=== PATIENT | female | born 1970 | race Caucasian/White ===

== ENCOUNTER 2017-04-07 08:36 | Outpatient (CLI) | payer BC ==
[2017-04-07] MEDS ORDERED: Iopamidol 370 76% 100 ML VIAL ONE (09:00)
--- NOTE | 2017-04-07 11:07 | CT ---
CT ABDOMEN AND PELVIS WITH AND WITHOUT CONTRAST: Date: 04-07-17 Comparison: 08-23-09 History: Hematuria. Technique: Serial axial CT imaging obtained at 5 mm interval from lung bases through the pubic symphy sis with and without IV contrast using a CT urogram protocol. Coronal reformatted imaging of the urog raphic studies provided. FINDINGS: The imaged lung bases are grossly unremarkable. No free intraperitoneal air or fluid. There is a punctate nonobstructing stone in the midpole of the left kidney measuring 3 mm. No intrare nal stone is seen on the right. The liver, gallbladder, spleen, pancreas, adrenal glands, and kidneys are otherwise unremarkable on t he nephrographic phase and urographic phase imaging. The urographic phase imaging demonstrates no evidence for a filling defect within the intrarenal parveen ecting system or imaged portions of either ureter. Urinary bladder is not optimally evaluated on this exam. Full evaluation of the urinary bladder would require direct visualization via cystoscopy. Lack of oral contrast limits assessment of the bowel. No evidence for bowel inflammatory change or claritza wel wall obstruction. The vascular structures of the abdomen/pelvis appear patent. There is no lymphadenopathy noted in the abdomen or pelvis. Incidental note is made of trace free fluid in the pelvic cul-de-sac. Osseous structures demonstrate no acute findings. IMPRESSION: 1. Nonobstructing stone midpole left kidney. 2. No solid renal mass or evidence of obstructive uropathy. 3. Urinary bladder not optimally assessed on this exam. POS: [facility]
== END 2017-04-07 08:37 | disposition home or self-care (01) ==
LOC: SCSCT 08:36
PROVIDERS: ATTEND Urology
DX: R31.9 Hematuria, unspecified (principal)
CPT/HCPCS: 74178

== ENCOUNTER 2018-05-20 13:41 | Outpatient (CLI) | payer BC ==
--- NOTE | 2018-05-20 14:44 | RAD ---
Exam: 1 view abdomen History renal calculi. : None Correlation: Abdomen CT 04/07/2018 FINDINGS: Nonspecific bowel gas pattern. No evidence of pneumoperitoneum on this supine projection. Questionable 3 mm calculus projecting over the medial left renal silhouette. Correlate clinically. No evidence of calcifications in the pelvis No osseous abnormalities IMPRESSION: Possible 3 mm calculus projecting over the medial left renal silhouette.
== END 2018-05-20 13:42 | disposition home or self-care (01) ==
LOC: RAD 13:41
PROVIDERS: ATTEND Urology
DX: N20.0 Calculus of kidney (principal)
CPT/HCPCS: 74018

== ENCOUNTER 2022-11-23 13:27 | Outpatient (CLI) | payer BC ==
[2022-11-23 14:26] LABS: #Eosinphils 0.1 10x3/uL (0.0-0.5); #Monocytes 0.5 10x3/uL (0.0-1.1); #Neutrophils 3.4 10x3/uL (1.5-8.4); %Basophils 0.6 % (0.0-2.0); %Eosinophils 2.6 % (0.0-6.0); %Lymphocytes 24.2 % (18.0-47.0); %Monocytes 9.4 % (0.0-10.0); Hematocrit 39.2 % (34.9-44.5); Hemoglobin 13.2 g/dL (12.0-15.5); Mean Corpuscular HGB CONC 33.7 g/dL (32.0-36.0); Mean Corpuscular Hemoglobin 33.6 pg (27.0-33.0); Mean Corpuscular Volume 99.7 fl (81.6-98.3); Mean Platelet Volume 8.2 fl (7.4-10.4); Platelet Count 288 10x3/uL (150-450); RBC Distribution Width 11.9 % (11.5-14.5); Red Blood Cell (RBC) Count 3.93 10x6/uL (3.90-5.03); White Blood Cell (WBC) Count 5.3 10x3/uL (3.5-10.5)
[2022-11-23 14:49] LABS: Anion Gap 14 mmol/L (10-20); BUN (Urea Nitrogen) 11 mg/dL (9.8-20.1); Calc. Creatinine Clearance 0 mL/min (70-130); Calcium 10.2 mg/dL (7.8-10.44); Carbon Dioxide 24 mmol/L (22-29); Chloride 105 mmol/L (98-107); Estimated GFR 90; Glucose 88 mg/dL (70-105); Potassium 4.5 mmol/L (3.5-5.1); Sodium 138 mmol/L (136-145)
== END 2022-11-23 13:28 | disposition home or self-care (01) ==
LOC: LABBT 13:27
PROVIDERS: ATTEND Orthopaedic Surgery
DX: Z01.818 Encounter for other preprocedural examination (principal); S83.241A Other tear of medial meniscus, current injury, right knee, initial encounter
CPT/HCPCS: 80048; 85025; 93005; 93010

== ENCOUNTER 2022-11-25 12:09 | Day surgery (SDC) | payer BC ==
[2022-11-23 13:50] VITALS: BMI 27.4
[2022-11-25] MEDS ORDERED: Sodium Chloride 0.9% 0 ML ONE (12:55)
[2022-11-25] MEDS ORDERED: CEFAZOLIN 2 GM VIAL ONE ×2 (12:55→15:19)
[2022-11-25] MEDS ORDERED: Scopolamine 1.5 mg/72 hour Patch ONE (12:59)
[2022-11-25] MEDS ORDERED: Acetaminophen 500 MG TAB ONE (12:59)
[2022-11-25] MEDS ORDERED: PROPOFOL 20 ML ONE (13:00)
[2022-11-25] MEDS ORDERED: Bupivacaine PF 0.5% 30 ML VIAL ONE ×2 (13:00→15:10)
[2022-11-25] MEDS ORDERED: Lidocaine 2% PF 5 ML VIAL ONE (13:00)
[2022-11-25] MEDS ORDERED: HYDROmorphone 0.5 MG/0.5 ML SYRINGE ONE (15:02)
[2022-11-25] MEDS ORDERED: Bupivacaine 0.25% HCL 30 ML VIAL ONE (15:10)
[2022-11-25] MEDS ORDERED: EPINEPHrine 1 MG/ML AMP ONE (15:10)
[2022-11-25] MEDS ORDERED: Sodium Chloride 0.9% 100 ML ONE (15:19)
[2022-11-25] MEDS ORDERED: Ondansetron PF 4 MG/2 ML Vial ONE (15:35)
[2022-11-25] MEDS ORDERED: PROPOFOL 200 MG/20 ML VIAL ONE (15:35)
[2022-11-25] MEDS ORDERED: Dexamethasone 20 MG/5 ML VIAL ONE (15:35)
[2022-11-25] MEDS ORDERED: ePHEDrine Sulfate 50 MG/10 ML VIAL ONE (15:35)
[2022-11-25] MEDS ORDERED: Ketorolac Tromethamine 30 MG/ML VIAL ONE (15:35)
== END 2022-11-25 18:05 | disposition home or self-care (01) ==
LOC: SDC 12:09
PROVIDERS: ATTEND Orthopaedic Surgery
PROC: 0SBC4ZZ Excision of Right Knee Joint, Percutaneous Endoscopic Approach (ICD-10-PCS; principal; 2022-11-25)
DX: M23.222 Derangement of posterior horn of medial meniscus due to old tear or injury, left knee (principal); J30.2 Other seasonal allergic rhinitis; F41.9 Anxiety disorder, unspecified; F32.A Depression, unspecified; D64.9 Anemia, unspecified; G89.29 Other chronic pain; G43.909 Migraine, unspecified, not intractable, without status migrainosus; Z87.891 Personal history of nicotine dependence; Z88.6 Allergy status to analgesic agent; Z79.899 Other long term (current) drug therapy
CPT/HCPCS: J0171; J1100; J1170; J1885; J2001; J2405; J2704; J3490; S0020